=== PATIENT | female | born 1955 | race Caucasian/White ===

== ENCOUNTER 2017-08-06 20:36 | Inpatient (IN) ==
[2017-08-06 21:58] LABS: Basophils # 0.1 10*3/uL (0.0-0.2); Basophils % 0.2 % (0.0-0.8); Hemoglobin 12.5 GM/DL (12.0-16.0); Immature Granulocytes % 0.3 %; Immature Granulocytes Absolute 0.07 #; Lymphocytes # 20.7 10*3/uL (1.4-4.0); Lymphocytes % 76.8 % (21.3-54.2); Mean Corpuscular HGB Conc 32.9 GM/DL (32-36); Mean Corpuscular Hemoglobin 29 PG (27-34); Mean Corpuscular Volume 87.8 FL (87-102); Mean Platelet Volume 11.1 FL (9.6-12.0); Monocytes # 0.4 10*3/uL (0.11-0.8); Monocytes % 1.4 % (1.7-12.7); Neutrophils # 5.7 10*3/uL (1.4-7.4); Neutrophils % 21.3 % (38.7-73.9); Platelet Count 137 T/CUMM (130-400); Red Blood Count 4.33 MC/CUMM (3.8-5.5); Red Cell Distribution Width 15.2 % (9.3-17.3); White Blood Count 26.9 T/CUMM (4-12)
[2017-08-06 22:03] LABS: INR 1.1; PT Patient Result 11.1 SECS
[2017-08-06 22:16] LABS: Albumin 3.5 G/DL (3.4-5.0); Bilirubin,Total 1.1 MG/DL (0.2-1.0); Calcium 7.4 MG/DL (8.5-10.1); Osmolality,Calculated 257.9 MOS/KG (273-304); Potassium 4.2 MMOL/L (3.5-5.1); Troponin I Only 0.414 NG/ML (0.00-0.045)
[2017-08-07] MEDS ORDERED: ONDANSETRON 4 MG/2 ML VIAL IV PRN (01:44)
[2017-08-07] MEDS ORDERED: NITROGLYCERIN SL 0.4 MG TABLET SL PRN (01:49)
[2017-08-07 03:05] LABS: Band Neutrophils 19 % (0-10); Lymphocytes 43 % (20-55); Nucleated Red Blood Cells 1 (0-5); Segmented Neutrophils 37 % (50-85); Total Cells Counted 100
[2017-08-07 03:06] LABS: Smudge Cells Many
[2017-08-07 06:00] LABS: Basophils % 0.2 % (0.0-0.8); Hematocrit 35.7 VOL% (35.7-47.0); Hemoglobin 11.7 GM/DL (12.0-16.0); Immature Granulocytes % 0.2 %; Immature Granulocytes Absolute 0.05 #; Lymphocytes # 20.5 10*3/uL (1.4-4.0); Lymphocytes % 82.1 % (21.3-54.2); Mean Corpuscular HGB Conc 32.8 GM/DL (32-36); Mean Corpuscular Hemoglobin 29 PG (27-34); Mean Corpuscular Volume 88.1 FL (87-102); Mean Platelet Volume 11.8 FL (9.6-12.0); Monocytes # 0.5 10*3/uL (0.11-0.8); Monocytes % 1.8 % (1.7-12.7); Neutrophils # 3.9 10*3/uL (1.4-7.4); Neutrophils % 15.7 % (38.7-73.9); Platelet Count 128 T/CUMM (130-400); Red Blood Count 4.05 MC/CUMM (3.8-5.5); Red Cell Distribution Width 15.2 % (9.3-17.3)
[2017-08-07 06:30] LABS: Calcium 7.5 MG/DL (8.5-10.1); Osmolality,Calculated 256.1 MOS/KG (273-304); Potassium 3.8 MMOL/L (3.5-5.1); Risk Ratio 4.58; Thyroid Stimulating Hormone 0.542 uIU/ml (0.358-3.74); VLDL CHOLESTEROL 27.2 MG/DL
[2017-08-07] MEDS: ENOXAPARIN 80 MG/0.8 ML SYRINGE SUBCUT SCH ×2 (06:34→18:23)
[2017-08-07 07:02] LABS: Band Neutrophils 1 % (0-10); Giant Platelets Few; Hypochromasia 1+; Lymphocytes 25 % (20-55); Platelet Estimate Normal; Segmented Neutrophils 70 % (50-85); Total Cells Counted 100
[2017-08-07 07:03] LABS: Smudge Cells Moderate
[2017-08-07] MEDS: NICOTINE 21 MG/24 HR PATCH TRANSDERM SCH (08:05)
[2017-08-07] MEDS: ASPIRIN 325 MG TABLET PO SCH ×2 (08:06→14:24)
[2017-08-07] MEDS ORDERED: ALBUTEROL/IPRATROPIUM 3 ML NEB RESP TX PRN (10:08)
[2017-08-07] MEDS: METOPROLOL TARTRATE 25 MG TABLET PO SCH ×2 (11:59→20:53)
[2017-08-07] MEDS: LEVOFLOXACIN INJ 750 MG in PREMIX 1 EACH IV SCH (11:59)
[2017-08-07] MEDS: ASPIRIN EC 81 MG TABLET PO SCH (14:24)
[2017-08-07] MEDS: ALBUTEROL/IPRATROPIUM 3 ML NEB RESP TX SCH ×2 (14:31→20:31)
[2017-08-08] MEDS: ALBUTEROL/IPRATROPIUM 3 ML NEB RESP TX SCH ×4 (00:50→19:10)
[2017-08-08] MEDS: NICOTINE 21 MG/24 HR PATCH TRANSDERM SCH (09:16)
[2017-08-08] MEDS: ENOXAPARIN 80 MG/0.8 ML SYRINGE SUBCUT SCH ×2 (09:17→21:30)
[2017-08-08] MEDS: ASPIRIN EC 81 MG TABLET PO SCH (09:17)
[2017-08-08] MEDS: METOPROLOL TARTRATE 25 MG TABLET PO SCH ×2 (09:17→21:30)
[2017-08-08 09:33] LABS: Basophils % 0.2 % (0.0-0.8); Hematocrit 33.6 VOL% (35.7-47.0); Hemoglobin 10.9 GM/DL (12.0-16.0); Immature Granulocytes % 0.1 %; Immature Granulocytes Absolute 0.02 #; Lymphocytes # 19.2 10*3/uL (1.4-4.0); Lymphocytes % 88.2 % (21.3-54.2); Mean Corpuscular HGB Conc 32.4 GM/DL (32-36); Mean Corpuscular Hemoglobin 29 PG (27-34); Mean Corpuscular Volume 88.7 FL (87-102); Mean Platelet Volume 10.3 FL (9.6-12.0); Monocytes # 0.4 10*3/uL (0.11-0.8); Monocytes % 1.8 % (1.7-12.7); Neutrophils # 2.1 10*3/uL (1.4-7.4); Neutrophils % 9.7 % (38.7-73.9); Platelet Count 113 T/CUMM (130-400); Red Blood Count 3.79 MC/CUMM (3.8-5.5); Red Cell Distribution Width 15.3 % (9.3-17.3); White Blood Count 21.7 T/CUMM (4-12)
[2017-08-08 10:03] LABS: Band Neutrophils 1 % (0-10); Lymphocytes 60 % (20-55); Segmented Neutrophils 30 % (50-85); Total Cells Counted 100
[2017-08-08 10:04] LABS: Atypical Lymphocytes Few; Hypochromasia 1+; Platelet Estimate Decreased; Smudge Cells Moderate
[2017-08-08 10:10] LABS: Calcium 7.7 MG/DL (8.5-10.1); Osmolality,Calculated 258.1 MOS/KG (273-304); Potassium 3.7 MMOL/L (3.5-5.1)
[2017-08-08] MEDS: LEVOFLOXACIN INJ 750 MG in PREMIX 1 EACH IV SCH (11:45)
[2017-08-08] MEDS: SODIUM CHLORIDE 0.9% 1,000 ML IV SCH ×2 (11:45→21:30)
[2017-08-09] MEDS: SODIUM CHLORIDE 0.9% 1,000 ML IV SCH ×2 (00:27→06:15)
[2017-08-09] MEDS: ALBUTEROL/IPRATROPIUM 3 ML NEB RESP TX SCH ×2 (00:36→07:35)
[2017-08-09 05:03] LABS: Basophils % 0.2 % (0.0-0.8); Eosinophils % 0.1 % (0.00-10.9); Hematocrit 34.1 VOL% (35.7-47.0); Immature Granulocytes % 0.1 %; Immature Granulocytes Absolute 0.02 #; Lymphocytes # 16.5 10*3/uL (1.4-4.0); Lymphocytes % 87.4 % (21.3-54.2); Mean Corpuscular HGB Conc 32.3 GM/DL (32-36); Mean Corpuscular Hemoglobin 29 PG (27-34); Mean Platelet Volume 10.9 FL (9.6-12.0); Monocytes # 0.3 10*3/uL (0.11-0.8); Monocytes % 1.7 % (1.7-12.7); NRBC # 0.03 10*3/uL; Neutrophils % 10.5 % (38.7-73.9); Platelet Count 126 T/CUMM (130-400); Red Blood Count 3.83 MC/CUMM (3.8-5.5); Red Cell Distribution Width 15.3 % (9.3-17.3); White Blood Count 18.9 T/CUMM (4-12)
[2017-08-09 05:27] LABS: Lymphocytes 50 % (20-55); Platelet Estimate Normal; Segmented Neutrophils 39 % (50-85); Smudge Cells Moderate; Total Cells Counted 100
[2017-08-09 05:28] LABS: Atypical Lymphocytes Few; Giant Platelets Few; Hypochromasia 1+
[2017-08-09 05:40] LABS: Calcium 7.9 MG/DL (8.5-10.1); Osmolality,Calculated 261.5 MOS/KG (273-304); Potassium 4.3 MMOL/L (3.5-5.1)
[2017-08-09 07:42] VITALS: BP 159/72
[2017-08-09] MEDS: NICOTINE 21 MG/24 HR PATCH TRANSDERM SCH (10:05)
[2017-08-09] MEDS: ASPIRIN EC 81 MG TABLET PO SCH (10:06)
[2017-08-09] MEDS: METOPROLOL TARTRATE 25 MG TABLET PO SCH (10:06)
[2017-08-09] MEDS: ENOXAPARIN 80 MG/0.8 ML SYRINGE SUBCUT SCH (10:07)
== END 2017-08-09 11:21 | disposition home or self-care (01) | DRG 191 ==
LOC: EDBD → EDUNIT# → N.ED 20:36 → SUATTDRO 08-07 01:45 → N.EDINP 08-07 01:45 → N.TELES 08-07 02:17
PROVIDERS: ADMIT Hospitalist; ATTEND Family Medicine